=== PATIENT | male | born 1955 | race African-American/Black ===

== ENCOUNTER 2018-04-08 10:05 | Emergency (ER) | payer OTHER ==
[~2018-04-08] VITALS: Ht 157.5 cm; Wt 59.1 kg
[~2018-04-08 10:05] MED LIST: AMLO10TA55 PO; ATEN25TA PO; CARB200T5 PO; FLUO-191 PO; HYDR25TA PO; LEVO125T4 PO; NAPR500T6 PO; RISP2TAB22 PO
[2018-04-08] MEDS ORDERED: PHEN100C23 PO (10:09)
[2018-04-08 10:32] VITALS: BP 164/142
[2018-04-08] MEDS ORDERED: KETOROLAC TROMETHAMINE 60 MG/2 ML VIAL IM ONE (11:00)
[2018-04-08] MEDS ORDERED: BACLOFEN 10 MG TABLET PO ONE (11:00)
[2018-04-08] MEDS ORDERED: ACETAMINOPHEN/CODEINE 300-30 MG TABLET PO ONE (11:00)
== END 2018-04-08 11:46 | disposition home or self-care (01) ==
LOC: EMS 10:07
DX: S86.912A Strain of unspecified muscle(s) and tendon(s) at lower leg level, left leg, initial encounter (principal); M79.662 Pain in left lower leg; I10 Essential (primary) hypertension; F17.210 Nicotine dependence, cigarettes, uncomplicated; M19.90 Unspecified osteoarthritis, unspecified site; Z88.0 Allergy status to penicillin; X58.XXXA Exposure to other specified factors, initial encounter; Y93.89 Activity, other specified; Y92.89 Other specified places as the place of occurrence of the external cause; Y99.8 Other external cause status
CPT/HCPCS: 96372; 99283; 99406; J1885

== ENCOUNTER 2018-05-14 10:35 | Emergency (ER) | payer OTHER ==
[~2018-05-14] VITALS: Ht 170.2 cm; Wt 68.2 kg
[~2018-05-14 10:35] MED LIST changes: -AMLO10TA55 PO; -ATEN25TA PO; -CARB200T5 PO; -FLUO-191 PO; -HYDR25TA PO; -LEVO125T4 PO; -NAPR500T6 PO; +PHEN100C23 PO; -RISP2TAB22 PO
[2018-05-14] MEDS ORDERED: KETOROLAC TROMETHAMINE 60 MG/2 ML VIAL IM ONE (11:45)
[2018-05-14 12:26] VITALS: BP 180/112
== END 2018-05-14 12:43 | disposition home or self-care (01) ==
LOC: EMS 10:36
DX: M54.42 Lumbago with sciatica, left side (principal); I10 Essential (primary) hypertension; F17.210 Nicotine dependence, cigarettes, uncomplicated; Z88.0 Allergy status to penicillin
CPT/HCPCS: 96372; 99283; J1885